=== PATIENT | male | born 1945 | race African-American/Black ===

== ENCOUNTER 2019-02-21 22:40 | Inpatient (IN) | payer MEDICARE, MEDICAID ==
[~2019-02-21] VITALS: Ht 172.7 cm; Wt 68.5 kg
[2019-02-21] MEDS ORDERED: ONDANSETRON HCL 4MG/2ML INJ IV STA (22:46)
[2019-02-21] MEDS ORDERED: IPRATROPIUM BROMIDE (0.02%) 0.5MG/2.5ML NEB HHN STA (22:46)
[2019-02-21] MEDS ORDERED: ALBUTEROL (0.083%) 2.5MG/3ML NEB HHN STA (22:46)
[2019-02-21] MEDS ORDERED: METHYLPREDNISOLONE SOD SUCC 125 MG/2 ML VIAL IV STA (22:46)
[2019-02-21] MEDS ORDERED: ASPIRIN 81MG TABLET PO ONE (23:00)
[2019-02-21 23:03] LABS: BG BASE EXCESS 2.8 mmol/L (-2.0-2.0); BG BILEVEL POS AIRWAY PRESSURE 15/5; BG CARBOXYHEMOGLOBIN 0.6 % (0.5-1.5); BG DEOXYHEMOGLOBIN 0.4 % (0.0-5.0); BG FRACTION INSPIRED OXYGEN 100; BG HCO3 ACT 30.9 mmol/L (22.0-26.0); BG METHEMOGLOBIN 0.3 % (0.0-1.5); BG OXYGEN SATURATION 99.6 % (92.0-98.5); BG OXYHEMOGLOBIN 98.7 % (94.0-97.0); BG PCO2 62.5 mmHg (35.0-45.0); BG PH 7.312 (7.350-7.450); BG PO2 527.5 mmHg (75.0-100.0); BG SAMPLE SITE LEFT RADIAL; BG TOTAL HEMOGLOBIN 15.3 g/dL (12.0-18.0); BG VENT MODE MASK - BIPAP
[2019-02-21 23:21] LABS: BASOPHILS % 0.6 % (0.0-2.0); EOSINOPHILS % 0.2 % (0.0-5.0); HEMATOCRIT. 44.7 % (42.0-52.0); HEMOGLOBIN. 15.5 g/dL (14.0-18.0); LYMPHOCYTES % 19.2 % (20.0-50.0); MEAN CORPUSCULAR HEMOGLOBIN 29.4 pg (28.0-32.0); MEAN CORPUSCULAR VOLUME 84.9 fL (80.0-94.0); MEAN PLATELET VOLUME 6.8 fl (7.4-10.4); MONOCYTES % 4.2 % (2.0-8.0); NEUTROPHILS % 75.8 % (40.0-76.0); PLATELET 314 x1000/uL (130-400); RED BLOOD CELL COUNT 5.26 mill/uL (4.7-6.1); RED CELL DISTRIBUTION WIDTH 13.6 % (11.6-14.6)
[2019-02-21 23:27] LABS: CHLORIDE 84 mEq/L (98-107)
[2019-02-22] VITALS (44 sets, daily range): BP systolic 102–138; BP diastolic 47–90
[2019-02-22] MEDS ORDERED: SODIUM CHLORIDE 0.9% 1,000 ML IV ONE ×2 (01:45→05:15)
[2019-02-22] MEDS ORDERED: POTASSIUM CHLORIDE INJ 40 MEQ in DEXT 5% WATER 250 ML IV SCH (02:00)
[2019-02-22] MEDS: POTASSIUM CHLORIDE 20MEQ TABLET SR PO SCH ×3 (02:02→02:35)
[2019-02-22] MEDS ORDERED: SUCCINYLCHOLINE CHLORIDE 200MG/10ML IV ONE ×2 (03:00→05:00)
[2019-02-22] MEDS ORDERED: ETOMIDATE 2MG/ML 10ML VIAL IV ONE ×2 (03:00→05:00)
[2019-02-22] MEDS ORDERED: MIDAZOLAM HCL 50 MG in DEXTROSE 5% WATER 40 ML IV ONE ×2 (03:15→04:00)
[2019-02-22] MEDS ORDERED: FENTANYL CITRATE/PF 500 MCG in SODIUM CHLORIDE 0.9% 40 ML IV PRN ×2 (03:15→04:30)
[2019-02-22] MEDS ORDERED: LORAZEPAM 2MG/ML CPJ ONE ×2 (03:59→04:58)
[2019-02-22] MEDS ORDERED: MORPHINE SULFATE 10 MG/ML CPJ ONE (05:07)
[2019-02-22 06:19] LABS: BG BASE EXCESS -0.7 mmol/L (-2.0-2.0); BG CARBOXYHEMOGLOBIN 0.6 % (0.5-1.5); BG DEOXYHEMOGLOBIN 0.6 % (0.0-5.0); BG FRACTION INSPIRED OXYGEN 100; BG HCO3 ACT 25.4 mmol/L (22.0-26.0); BG METHEMOGLOBIN 0.4 % (0.0-1.5); BG OXYGEN SATURATION 99.4 % (92.0-98.5); BG OXYHEMOGLOBIN 98.4 % (94.0-97.0); BG PCO2 47.7 mmHg (35.0-45.0); BG PH 7.345 (7.350-7.450); BG PO2 436.3 mmHg (75.0-100.0); BG SAMPLE SITE RIGHT RADIAL; BG TIDAL VOLUME(mL) 400 mL; BG TOTAL HEMOGLOBIN 13.3 g/dL (12.0-18.0); BG VENT MODE VENT - A/C; BG VENT RATE 16 set
[2019-02-22] MEDS ORDERED: LORAZEPAM 2MG/ML CPJ IV ONE (06:40)
[2019-02-22] MEDS ORDERED: MORPHINE SULFATE 4 MG/ML CPJ (NOT FOR IM USE) IV ONE (06:40)
[2019-02-22] MEDS ORDERED: IPRATROPIUM/ALBUTEROL 0.5-3(2.5)MG/3ML NEB HHN PRN (09:15)
[2019-02-22] MEDS ORDERED: ACETAMINOPHEN 325MG TABLET NG PRN (09:15)
[2019-02-22] MEDS ORDERED: ONDANSETRON HCL 4MG/2ML INJ IV PRN (09:15)
[2019-02-22] MEDS ORDERED: PIPERACILLIN/TAZ 3.375G PREMIX 50 ML IV SCH (09:15)
[2019-02-22] MEDS ORDERED: MAGNESIUM 2 G PREMIX 50 ML IV ONE (09:15)
[2019-02-22 10:49] LABS: BG BASE EXCESS 3.6 mmol/L (-2.0-2.0); BG CARBOXYHEMOGLOBIN 0.2 % (0.5-1.5); BG DEOXYHEMOGLOBIN 1.5 % (0.0-5.0); BG FRACTION INSPIRED OXYGEN 50; BG HCO3 ACT 29.7 mmol/L (22.0-26.0); BG METHEMOGLOBIN 0.4 % (0.0-1.5); BG OXYGEN SATURATION 98.5 % (92.0-98.5); BG OXYHEMOGLOBIN 97.9 % (94.0-97.0); BG PCO2 50.6 mmHg (35.0-45.0); BG PH 7.386 (7.350-7.450); BG PO2 148.8 mmHg (75.0-100.0); BG SAMPLE SITE RIGHT RADIAL; BG TIDAL VOLUME(mL) 450 mL; BG VENT MODE VENT - A/C; BG VENT RATE 16 set
[2019-02-22] MEDS ORDERED: SODIUM CHLORIDE 3% 500 ML IV NR (11:00)
[2019-02-22] MEDS ORDERED: POTASSIUM CHLORIDE INJ 40 MEQ in SODIUM CHLORIDE 0.9% 250 ML IV NR (11:00)
[2019-02-22] MEDS: PIPERACILLIN/TAZOBACTAM 3.375 G in DEXT 5% WATER 100 ML IV SCH ×2 (11:16→17:29)
[2019-02-22] MEDS: ENOXAPARIN 40MG/0.4ML SYR SUBCUT SCH (11:16)
[2019-02-22] MEDS ORDERED: VANCOMYCIN 1 G PREMIX 200 ML IV NR (11:30)
[2019-02-22] MEDS: MIDAZOLAM HCL 50 MG in DEXTROSE 5% WATER 40 ML IV PRN (12:51)
[2019-02-22] MEDS: IPRATROPIUM/ALBUTEROL 0.5-3(2.5)MG/3ML NEB HHN SCH ×3 (13:00→20:11)
[2019-02-22 13:19] LABS: BASOPHILS % 0.2 % (0.0-2.0); CHLORIDE 93 mEq/L (98-107); HEMATOCRIT. 41.5 % (42.0-52.0); HEMOGLOBIN. 14.3 g/dL (14.0-18.0); LYMPHOCYTES % 9.1 % (20.0-50.0); MEAN CORPUSCULAR HEMOGLOBIN 29.1 pg (28.0-32.0); MEAN CORPUSCULAR VOLUME 84.4 fL (80.0-94.0); MEAN PLATELET VOLUME 6.8 fl (7.4-10.4); MONOCYTES % 8.4 % (2.0-8.0); NEUTROPHILS % 82.3 % (40.0-76.0); PLATELET 271 x1000/uL (130-400); RED BLOOD CELL COUNT 4.92 mill/uL (4.7-6.1); RED CELL DISTRIBUTION WIDTH 13.6 % (11.6-14.6)
[2019-02-22] MEDS: MONTELUKAST SODIUM 10MG TABLET NG SCH (17:29)
[2019-02-22] MEDS: POTASSIUM CHLORIDE 20MEQ/PACKET NG SCH (17:29)
[2019-02-22] MEDS: FAMOTIDINE 20MG/2ML VIAL IV SCH (20:50)
[2019-02-22 21:21] LABS: CREATINE KINASE MB FRACTION 14.6 ng/mL (0.5-3.6)
[2019-02-22 21:22] LABS: T4 FREE 1.11 ng/dL (0.76-1.46)
[2019-02-22] MEDS ORDERED: VANCOMYCIN 750 MG PREMIX 150 ML IV SCH (22:00)
[2019-02-23] VITALS (90 sets, daily range): BP systolic 75–178; BP diastolic 33–127
[2019-02-23] MEDS: IPRATROPIUM/ALBUTEROL 0.5-3(2.5)MG/3ML NEB HHN SCH ×6 (00:25→19:55)
[2019-02-23 01:07] LABS: CREATINE KINASE MB FRACTION 10.6 ng/mL (0.5-3.6)
[2019-02-23] MEDS: PIPERACILLIN/TAZOBACTAM 3.375 G in DEXT 5% WATER 100 ML IV SCH ×3 (02:04→17:26)
[2019-02-23] MEDS: MIDAZOLAM HCL 50 MG in DEXTROSE 5% WATER 40 ML IV PRN ×3 (02:14→21:46)
[2019-02-23 05:38] LABS: BASOPHILS % 0.2 % (0.0-2.0); HEMATOCRIT. 37.6 % (42.0-52.0); MEAN CORPUSCULAR VOLUME 83.7 fL (80.0-94.0); MONOCYTES % 8.3 % (2.0-8.0); NEUTROPHILS % 83.5 % (40.0-76.0); PLATELET 263 x1000/uL (130-400); RED BLOOD CELL COUNT 4.49 mill/uL (4.7-6.1); RED CELL DISTRIBUTION WIDTH 13.8 % (11.6-14.6)
[2019-02-23 06:03] LABS: CHLORIDE 105 mEq/L (98-107)
[2019-02-23 06:16] LABS: PHOSPHORUS 1.1 mg/dL (2.5-4.9)
[2019-02-23] MEDS: POTASSIUM CHLORIDE 20MEQ/PACKET NG SCH ×2 (06:51→17:26)
[2019-02-23] MEDS ORDERED: LEVOTHYROXINE SODIUM 25MCG TABLET NG SCH (07:15)
[2019-02-23] MEDS ORDERED: DEXT 5%/0.45% NACL 1000ML 1,000 ML IV SCH (07:15)
[2019-02-23] MEDS ORDERED: POTASSIUM PHOS M BASIC D BASIC IV SCH (08:00)
[2019-02-23] MEDS ORDERED: DEXT IV SCH (08:00)
[2019-02-23] MEDS ORDERED: NACL IV SCH (08:00)
[2019-02-23] MEDS: FAMOTIDINE 20MG/2ML VIAL IV SCH ×2 (09:06→20:48)
[2019-02-23] MEDS: AMLODIPINE 2.5MG TABLET NG SCH (09:06)
[2019-02-23] MEDS: POTASSIUM-SODIUM PHOSPHATE POWDER PACKET NG SCH ×2 (09:06→17:18)
[2019-02-23] MEDS: MORPHINE SULFATE 2 MG/ML CPJ (NOT FOR IM USE) IV PRN ×2 (09:07→17:13)
[2019-02-23] MEDS: ENOXAPARIN 40MG/0.4ML SYR SUBCUT SCH (09:07)
[2019-02-23] MEDS: DEXT 5%/0.9% NACL KCL 20MEQ/L 1,000 ML IV SCH (10:24)
[2019-02-23] MEDS ORDERED: VANCOMYCIN 1250MG in DEXTROSE 5% WATER 250ML IV SCH (11:00)
[2019-02-23 12:23] LABS: BG BASE EXCESS 4.6 mmol/L (-2.0-2.0); BG CARBOXYHEMOGLOBIN 0.5 % (0.5-1.5); BG DEOXYHEMOGLOBIN 0.8 % (0.0-5.0); BG FRACTION INSPIRED OXYGEN 50; BG HCO3 ACT 29.3 mmol/L (22.0-26.0); BG METHEMOGLOBIN 0.4 % (0.0-1.5); BG OXYGEN SATURATION 99.2 % (92.0-98.5); BG OXYHEMOGLOBIN 98.3 % (94.0-97.0); BG PCO2 43.8 mmHg (35.0-45.0); BG PH 7.443 (7.350-7.450); BG PO2 196.2 mmHg (75.0-100.0); BG SAMPLE SITE RIGHT RADIAL; BG TIDAL VOLUME(mL) 450 mL; BG TOTAL HEMOGLOBIN 14.3 g/dL (12.0-18.0); BG VENT MODE VENT - A/C; BG VENT RATE 16 set
[2019-02-23 14:17] LABS: CLARITY URINE CLEAR (CLEAR); COLOR URINE RED (YELLOW); KETONES URINE NEGATIVE (NEGATIVE); LEUKOCYTE ESTERASE URINE NEGATIVE (NEGATIVE); NITRITE URINE NEGATIVE (NEGATIVE); OCCULT BLOOD URINE 3+ (NEGATIVE); PROTEIN URINE NEGATIVE (NEGATIVE); SPECIFIC GRAVITY URINE 1.009 (1.005-1.030); UROBILINOGEN URINE 0.2 E.U./dL (0.2-1.0)
[2019-02-23 15:19] LABS: METHADONE URINE SCREEN NEGATIVE (NEGATIVE)
[2019-02-23 15:20] LABS: *AMPHETAMINES SCREEN URINE NEGATIVE (NEGATIVE); *BARBITURATES SCREEN URINE NEGATIVE (NEGATIVE); *BENZODIAZEPINES SCREEN URINE PRESUMTIVE POSITIVE (NEGATIVE); *COCAINE SCREEN URINE NEGATIVE (NEGATIVE); CANNABINOID URINE SCREEN NEGATIVE (NEGATIVE); OPIATES URINE SCREEN PRESUMTIVE POSITIVE (NEGATIVE); PHENCYCLIDINE URINE SCREEN NEGATIVE (NEGATIVE)
[2019-02-23] MEDS: MONTELUKAST SODIUM 10MG TABLET NG SCH (17:18)
[2019-02-24] VITALS (97 sets, daily range): BP systolic 96–190; BP diastolic 30–101
[2019-02-24] MEDS: IPRATROPIUM/ALBUTEROL 0.5-3(2.5)MG/3ML NEB HHN SCH ×6 (00:05→20:48)
[2019-02-24] MEDS: MORPHINE SULFATE 2 MG/ML CPJ (NOT FOR IM USE) IV PRN ×3 (01:33→13:06)
[2019-02-24] MEDS: PIPERACILLIN/TAZOBACTAM 3.375 G in DEXT 5% WATER 100 ML IV SCH ×3 (02:27→18:17)
[2019-02-24] MEDS: DEXT 5%/0.9% NACL KCL 20MEQ/L 1,000 ML IV SCH (02:28)
[2019-02-24] MEDS: MIDAZOLAM HCL 50 MG in DEXTROSE 5% WATER 40 ML IV PRN ×3 (04:17→18:19)
[2019-02-24 05:52] LABS: BASOPHILS % 0.6 % (0.0-2.0); EOSINOPHILS % 0.3 % (0.0-5.0); HEMATOCRIT. 37.4 % (42.0-52.0); HEMOGLOBIN. 12.7 g/dL (14.0-18.0); LYMPHOCYTES % 9.8 % (20.0-50.0); MEAN CORPUSCULAR HEMOGLOBIN 28.9 pg (28.0-32.0); MEAN CORPUSCULAR VOLUME 85.1 fL (80.0-94.0); MEAN PLATELET VOLUME 6.7 fl (7.4-10.4); MONOCYTES % 8.1 % (2.0-8.0); NEUTROPHILS % 81.2 % (40.0-76.0); PLATELET 247 x1000/uL (130-400); RED BLOOD CELL COUNT 4.39 mill/uL (4.7-6.1); RED CELL DISTRIBUTION WIDTH 13.9 % (11.6-14.6)
[2019-02-24] MEDS: POTASSIUM CHLORIDE 20MEQ/PACKET NG SCH ×2 (06:19→18:17)
[2019-02-24 06:21] LABS: CHLORIDE 107 mEq/L (98-107)
[2019-02-24 06:32] LABS: PHOSPHORUS 1.1 mg/dL (2.5-4.9)
[2019-02-24] MEDS: LEVOTHYROXINE SODIUM 25MCG TABLET NG SCH (06:34)
[2019-02-24] MEDS ORDERED: SODIUM CHL 0.45% + KCL 20MEQ/L 1,000 ML IV SCH (09:00)
[2019-02-24] MEDS: AMLODIPINE 2.5MG TABLET NG SCH (09:21)
[2019-02-24] MEDS: FAMOTIDINE 20MG/2ML VIAL IV SCH ×2 (09:21→20:40)
[2019-02-24] MEDS: POTASSIUM-SODIUM PHOSPHATE POWDER PACKET NG SCH ×2 (09:21→18:17)
[2019-02-24] MEDS: ENOXAPARIN 40MG/0.4ML SYR SUBCUT SCH (09:21)
[2019-02-24 09:54] LABS: BG BASE EXCESS 2.4 mmol/L (-2.0-2.0); BG CARBOXYHEMOGLOBIN 0.6 % (0.5-1.5); BG FRACTION INSPIRED OXYGEN 40; BG HCO3 ACT 27.4 mmol/L (22.0-26.0); BG METHEMOGLOBIN 0.3 % (0.0-1.5); BG OXYHEMOGLOBIN 98.1 % (94.0-97.0); BG PCO2 43.7 mmHg (35.0-45.0); BG PH 7.415 (7.350-7.450); BG SAMPLE SITE RIGHT RADIAL; BG TIDAL VOLUME(mL) 450 mL; BG TOTAL HEMOGLOBIN 13.3 g/dL (12.0-18.0); BG VENT MODE VENT - A/C; BG VENT RATE 16 set
[2019-02-24] MEDS: VANCOMYCIN 1 G PREMIX 200 ML IV SCH (11:32)
[2019-02-24] MEDS ORDERED: POTASSIUM PHOS,M-BASIC-D-BASIC 20 MMOL in DEXT 5% WATER 243.3333 ML IV NR (12:00)
[2019-02-24] MEDS: MONTELUKAST SODIUM 10MG TABLET NG SCH (18:16)
[2019-02-25] VITALS (107 sets, daily range): BP systolic 76–190; BP diastolic 45–155
[2019-02-25] MEDS: MIDAZOLAM HCL 50 MG in DEXTROSE 5% WATER 40 ML IV PRN ×2 (00:12→06:43)
[2019-02-25] MEDS: IPRATROPIUM/ALBUTEROL 0.5-3(2.5)MG/3ML NEB HHN SCH ×6 (00:34→20:40)
[2019-02-25] MEDS: PIPERACILLIN/TAZOBACTAM 3.375 G in DEXT 5% WATER 100 ML IV SCH ×3 (01:34→17:55)
[2019-02-25] MEDS: VANCOMYCIN 1 G PREMIX 200 ML IV SCH ×2 (02:45→19:19)
[2019-02-25] MEDS: LEVOTHYROXINE SODIUM 25MCG TABLET NG SCH (05:44)
[2019-02-25] MEDS: POTASSIUM CHLORIDE 20MEQ/PACKET NG SCH ×2 (05:45→17:55)
[2019-02-25 06:07] LABS: BASOPHILS % 0.5 % (0.0-2.0); EOSINOPHILS % 0.9 % (0.0-5.0); HEMOGLOBIN. 13.4 g/dL (14.0-18.0); LYMPHOCYTES % 12.7 % (20.0-50.0); MEAN CORPUSCULAR HEMOGLOBIN 28.8 pg (28.0-32.0); MEAN CORPUSCULAR VOLUME 86.2 fL (80.0-94.0); MEAN PLATELET VOLUME 7.1 fl (7.4-10.4); NEUTROPHILS % 77.9 % (40.0-76.0); PLATELET 255 x1000/uL (130-400); RED BLOOD CELL COUNT 4.64 mill/uL (4.7-6.1); RED CELL DISTRIBUTION WIDTH 13.8 % (11.6-14.6)
[2019-02-25 06:29] LABS: CHLORIDE 103 mEq/L (98-107)
[2019-02-25 06:36] LABS: PHOSPHORUS 3.5 mg/dL (2.5-4.9)
[2019-02-25 08:16] LABS: BG BASE EXCESS 1.5 mmol/L (-2.0-2.0); BG CARBOXYHEMOGLOBIN 0.3 % (0.5-1.5); BG DEOXYHEMOGLOBIN 1.5 % (0.0-5.0); BG FRACTION INSPIRED OXYGEN 40; BG HCO3 ACT 26.4 mmol/L (22.0-26.0); BG METHEMOGLOBIN 0.1 % (0.0-1.5); BG OXYGEN SATURATION 98.5 % (92.0-98.5); BG OXYHEMOGLOBIN 98.1 % (94.0-97.0); BG PCO2 42.6 mmHg (35.0-45.0); BG PO2 131.4 mmHg (75.0-100.0); BG PRESSURE SUPPORT 12; BG SAMPLE SITE RIGHT RADIAL; BG TIDAL VOLUME(mL) 500 mL; BG VENT MODE VENT - SIMV; BG VENT RATE 8 set
[2019-02-25] MEDS: ENOXAPARIN 40MG/0.4ML SYR SUBCUT SCH (09:46)
[2019-02-25] MEDS: FAMOTIDINE 20MG/2ML VIAL IV SCH ×2 (09:46→21:15)
[2019-02-25] MEDS: AMLODIPINE 2.5MG TABLET NG SCH (09:46)
[2019-02-25] MEDS: POTASSIUM-SODIUM PHOSPHATE POWDER PACKET NG SCH ×2 (09:46→17:55)
[2019-02-25] MEDS: MORPHINE SULFATE 2 MG/ML CPJ (NOT FOR IM USE) IV PRN (10:07)
[2019-02-25] MEDS: QUETIAPINE FUMARATE 25MG TABLET PO SCH (13:35)
[2019-02-25] MEDS: PROPOFOL 10MG/ML 100ML 100 ML IV PRN ×2 (13:37→22:18)
[2019-02-25] MEDS: MONTELUKAST SODIUM 10MG TABLET NG SCH (17:55)
[2019-02-26] VITALS (96 sets, daily range): BP systolic 72–160; BP diastolic 40–85
[2019-02-26] MEDS: IPRATROPIUM/ALBUTEROL 0.5-3(2.5)MG/3ML NEB HHN SCH ×7 (00:38→23:57)
[2019-02-26] MEDS: PIPERACILLIN/TAZOBACTAM 3.375 G in DEXT 5% WATER 100 ML IV SCH ×3 (01:38→17:28)
[2019-02-26 06:28] LABS: BASOPHILS % 0.6 % (0.0-2.0); EOSINOPHILS % 2.1 % (0.0-5.0); HEMATOCRIT. 35.4 % (42.0-52.0); HEMOGLOBIN. 12.5 g/dL (14.0-18.0); MEAN CORPUSCULAR VOLUME 84.9 fL (80.0-94.0); MEAN PLATELET VOLUME 7.2 fl (7.4-10.4); MONOCYTES % 7.7 % (2.0-8.0); NEUTROPHILS % 79.6 % (40.0-76.0); PLATELET 282 x1000/uL (130-400); RED BLOOD CELL COUNT 4.17 mill/uL (4.7-6.1); RED CELL DISTRIBUTION WIDTH 13.9 % (11.6-14.6)
[2019-02-26] MEDS: POTASSIUM CHLORIDE 20MEQ/PACKET NG SCH (06:34)
[2019-02-26] MEDS: LEVOTHYROXINE SODIUM 25MCG TABLET NG SCH (06:34)
[2019-02-26 06:39] LABS: PHOSPHORUS 3.2 mg/dL (2.5-4.9)
[2019-02-26] MEDS: ENOXAPARIN 40MG/0.4ML SYR SUBCUT SCH (07:56)
[2019-02-26] MEDS: QUETIAPINE FUMARATE 25MG TABLET PO SCH (07:57)
[2019-02-26] MEDS: FAMOTIDINE 20MG/2ML VIAL IV SCH (07:57)
[2019-02-26] MEDS: AMLODIPINE 2.5MG TABLET NG SCH (07:57)
[2019-02-26] MEDS: PROPOFOL 10MG/ML 100ML 100 ML IV PRN ×2 (07:59→21:59)
[2019-02-26 08:38] LABS: BG BASE EXCESS -5.3 mmol/L (-2.0-2.0); BG CARBOXYHEMOGLOBIN 0.3 % (0.5-1.5); BG DEOXYHEMOGLOBIN 1.5 % (0.0-5.0); BG FRACTION INSPIRED OXYGEN 40; BG METHEMOGLOBIN 0.1 % (0.0-1.5); BG OXYGEN SATURATION 98.5 % (92.0-98.5); BG OXYHEMOGLOBIN 98.1 % (94.0-97.0); BG PCO2 28.8 mmHg (35.0-45.0); BG PH 7.414 (7.350-7.450); BG PO2 139.7 mmHg (75.0-100.0); BG PRESSURE SUPPORT 12; BG SAMPLE SITE RIGHT RADIAL; BG TIDAL VOLUME(mL) 500 mL; BG TOTAL HEMOGLOBIN 12.6 g/dL (12.0-18.0); BG VENT MODE VENT - SIMV; BG VENT RATE 8 set
[2019-02-26] MEDS: VANCOMYCIN 1 G PREMIX 200 ML IV SCH (15:27)
[2019-02-26] MEDS: MONTELUKAST SODIUM 10MG TABLET NG SCH (17:28)
[2019-02-27] VITALS (97 sets, daily range): BP systolic 82–181; BP diastolic 36–101
[2019-02-27] MEDS: PIPERACILLIN/TAZOBACTAM 3.375 G in DEXT 5% WATER 100 ML IV SCH ×3 (02:04→17:18)
[2019-02-27] MEDS: PROPOFOL 10MG/ML 100ML 100 ML IV PRN ×4 (03:05→21:59)
[2019-02-27] MEDS: MORPHINE SULFATE 2 MG/ML CPJ (NOT FOR IM USE) IV PRN ×2 (03:05→12:30)
[2019-02-27] MEDS: IPRATROPIUM/ALBUTEROL 0.5-3(2.5)MG/3ML NEB HHN SCH ×5 (04:20→20:23)
[2019-02-27] MEDS: LEVOTHYROXINE SODIUM 25MCG TABLET NG SCH (05:37)
[2019-02-27 05:54] LABS: BASOPHILS % 0.7 % (0.0-2.0); EOSINOPHILS % 3.6 % (0.0-5.0); HEMATOCRIT. 34.8 % (42.0-52.0); HEMOGLOBIN. 11.9 g/dL (14.0-18.0); LYMPHOCYTES % 12.6 % (20.0-50.0); MEAN CORPUSCULAR HEMOGLOBIN 29.4 pg (28.0-32.0); MONOCYTES % 9.7 % (2.0-8.0); NEUTROPHILS % 73.4 % (40.0-76.0); PLATELET 292 x1000/uL (130-400); RED BLOOD CELL COUNT 4.05 mill/uL (4.7-6.1); RED CELL DISTRIBUTION WIDTH 13.9 % (11.6-14.6)
[2019-02-27 06:12] LABS: CHLORIDE 105 mEq/L (98-107)
[2019-02-27 07:47] LABS: BG BASE EXCESS 2.4 mmol/L (-2.0-2.0); BG DEOXYHEMOGLOBIN 1.9 % (0.0-5.0); BG FRACTION INSPIRED OXYGEN 30; BG HCO3 ACT 27.1 mmol/L (22.0-26.0); BG METHEMOGLOBIN 0.1 % (0.0-1.5); BG OXYGEN SATURATION 98.1 % (92.0-98.5); BG PCO2 42.8 mmHg (35.0-45.0); BG PO2 101.7 mmHg (75.0-100.0); BG PRESSURE SUPPORT 12; BG SAMPLE SITE RIGHT BRACHIAL; BG TIDAL VOLUME(mL) 500 mL; BG VENT MODE VENT - SIMV; BG VENT RATE 8 set
[2019-02-27] MEDS: VANCOMYCIN 1 G PREMIX 200 ML IV SCH (08:52)
[2019-02-27] MEDS: AMLODIPINE 2.5MG TABLET NG SCH (08:53)
[2019-02-27] MEDS: FAMOTIDINE 20MG/2ML VIAL IV SCH (08:59)
[2019-02-27] MEDS: LORAZEPAM 2MG/ML CPJ IV PRN (12:09)
[2019-02-27] MEDS: BUDESONIDE 0.5MG/2ML NEB HHN SCH ×2 (12:32→20:23)
[2019-02-27] MEDS ORDERED: LORAZEPAM 2MG/ML CPJ IV NR (12:45)
[2019-02-27 13:35] LABS: BG BASE EXCESS 2.7 mmol/L (-2.0-2.0); BG CARBOXYHEMOGLOBIN 0.3 % (0.5-1.5); BG DEOXYHEMOGLOBIN 4.2 % (0.0-5.0); BG FRACTION INSPIRED OXYGEN 30; BG HCO3 ACT 27.5 mmol/L (22.0-26.0); BG METHEMOGLOBIN 0.2 % (0.0-1.5); BG OXYGEN SATURATION 95.8 % (92.0-98.5); BG OXYHEMOGLOBIN 95.3 % (94.0-97.0); BG PCO2 43.1 mmHg (35.0-45.0); BG PH 7.423 (7.350-7.450); BG PO2 85.3 mmHg (75.0-100.0); BG PRESSURE SUPPORT 8; BG SAMPLE SITE RIGHT RADIAL; BG TOTAL HEMOGLOBIN 12.9 g/dL (12.0-18.0); BG VENT MODE VENT - CPAP
[2019-02-27] MEDS: MONTELUKAST SODIUM 10MG TABLET NG SCH (17:18)
[2019-02-28] VITALS (89 sets, daily range): BP systolic 78–171; BP diastolic 30–94
[2019-02-28] MEDS: IPRATROPIUM/ALBUTEROL 0.5-3(2.5)MG/3ML NEB HHN SCH ×6 (00:18→20:05)
[2019-02-28] MEDS: PIPERACILLIN/TAZOBACTAM 3.375 G in DEXT 5% WATER 100 ML IV SCH ×3 (01:46→17:56)
[2019-02-28] MEDS: PROPOFOL 10MG/ML 100ML 100 ML IV PRN ×5 (03:42→21:59)
[2019-02-28 05:19] LABS: BASOPHILS % 0.6 % (0.0-2.0); EOSINOPHILS % 3.4 % (0.0-5.0); HEMATOCRIT. 34.9 % (42.0-52.0); HEMOGLOBIN. 11.9 g/dL (14.0-18.0); LYMPHOCYTES % 10.8 % (20.0-50.0); MEAN CORPUSCULAR HEMOGLOBIN 29.3 pg (28.0-32.0); MEAN PLATELET VOLUME 6.8 fl (7.4-10.4); MONOCYTES % 7.9 % (2.0-8.0); NEUTROPHILS % 77.3 % (40.0-76.0); PLATELET 286 x1000/uL (130-400); RED BLOOD CELL COUNT 4.06 mill/uL (4.7-6.1); RED CELL DISTRIBUTION WIDTH 13.9 % (11.6-14.6)
[2019-02-28 05:50] LABS: CHLORIDE 103 mEq/L (98-107)
[2019-02-28] MEDS: LEVOTHYROXINE SODIUM 25MCG TABLET NG SCH (05:54)
[2019-02-28] MEDS: BUDESONIDE 0.5MG/2ML NEB HHN SCH ×2 (08:29→20:05)
[2019-02-28 08:56] LABS: BG CARBOXYHEMOGLOBIN 0.2 % (0.5-1.5); BG DEOXYHEMOGLOBIN 3.6 % (0.0-5.0); BG FRACTION INSPIRED OXYGEN 30; BG HCO3 ACT 31.2 mmol/L (22.0-26.0); BG METHEMOGLOBIN 0.3 % (0.0-1.5); BG OXYGEN SATURATION 96.4 % (92.0-98.5); BG OXYHEMOGLOBIN 95.9 % (94.0-97.0); BG PCO2 47.5 mmHg (35.0-45.0); BG PH 7.435 (7.350-7.450); BG PO2 85.7 mmHg (75.0-100.0); BG PRESSURE SUPPORT 10; BG SAMPLE SITE RIGHT BRACHIAL; BG TIDAL VOLUME(mL) 500 mL; BG TOTAL HEMOGLOBIN 13.1 g/dL (12.0-18.0); BG VENT MODE VENT - SIMV; BG VENT RATE 6 set
[2019-02-28] MEDS: AMLODIPINE 2.5MG TABLET NG SCH (09:00)
[2019-02-28] MEDS: FAMOTIDINE 20MG/2ML VIAL IV SCH (09:40)
[2019-02-28] MEDS: LORAZEPAM 2MG/ML CPJ IV PRN (09:40)
[2019-02-28] MEDS ORDERED: SODIUM CHLORIDE 0.9% 1,000 ML IV SCH (09:45)
[2019-02-28] MEDS: MONTELUKAST SODIUM 10MG TABLET NG SCH (17:56)
[2019-02-28] MEDS ORDERED: HALOPERIDOL 0.5MG TABLET PO SCH (22:00)
== END 2019-02-28 22:10 | disposition short-term general hospital (02) | DRG 4 ==
LOC: ER 22:50 → MICUNO 02-22 01:45 → EDBEDREQDT 02-22 01:50 → EDBEDREQSVC 02-22 01:50 → EDBEDREQ 02-22 01:50 → EDBEDREQTM 02-22 01:50 → EDBEDREQSVC 02-22 05:48 → EDBEDREQTM 02-22 05:50 → ENRESERV 02-22 08:37
PROVIDERS: ADMIT Internal Medicine Geriatric Medicine; ATTEND Internal Medicine Geriatric Medicine
PROC: 5A1955Z Respiratory Ventilation, Greater than 96 Consecutive Hours (ICD-10-PCS; principal; 2019-02-22)
PROC: 0B110F4 Bypass Trachea to Cutaneous with Tracheostomy Device, Open Approach (ICD-10-PCS; 2019-02-22)
PROC: 5A09357 Assistance with Respiratory Ventilation, Less than 24 Consecutive Hours, Continuous Positive Airway Pressure (ICD-10-PCS; 2019-02-22)
DX: J96.02 Acute respiratory failure with hypercapnia (principal); G93.41 Metabolic encephalopathy; J18.9 Pneumonia, unspecified organism; N17.0 Acute kidney failure with tubular necrosis; J44.1 Chronic obstructive pulmonary disease with (acute) exacerbation; E22.2 Syndrome of inappropriate secretion of antidiuretic hormone; E44.0 Moderate protein-calorie malnutrition; J44.0 Chronic obstructive pulmonary disease with (acute) lower respiratory infection; E83.39 Other disorders of phosphorus metabolism; E87.6 Hypokalemia; D64.9 Anemia, unspecified; E03.9 Hypothyroidism, unspecified; E11.65 Type 2 diabetes mellitus with hyperglycemia; E87.5 Hyperkalemia; K80.20 Calculus of gallbladder without cholecystitis without obstruction; J39.8 Other specified diseases of upper respiratory tract; R31.29 Other microscopic hematuria; Z85.21 Personal history of malignant neoplasm of larynx; Z92.3 Personal history of irradiation; Z93.0 Tracheostomy status; Z68.23 Body mass index [BMI] 23.0-23.9, adult
CPT/HCPCS: 36415; 36600; 70490; 71045; 71250; 76770; 80048; 80053; 80202; 80305; 81003; 82375; 82553; 82805; 83735; 83880; 84100; 84153; 84439; 84443; 84478; 84484; 85025; 87070; 87077; 87186; 87804; 93005; 93306; 93970; 94002; 94003; 94640; 94644; 94660; 99285; J0330; J1650; J2060; J2250; J2270; J2405; J2543; J2704; J2930; J3010; J3370; J3480; J3490; J7030; J7050; J7060; J7611; J7620; J7626; G0103

== ENCOUNTER 2019-03-04 20:00 | Inpatient (IN) | payer MEDICARE, MEDICAID ==
[2019-03-04] VITALS (13 sets, daily range): BP systolic 105–166; BP diastolic 47–92
[~2019-03-04] VITALS: Ht 170.2 cm; Wt 75.3 kg
[2019-03-04] MEDS: LACTATED RINGERS 1,000 ML IV SCH (20:30)
[2019-03-04] MEDS ORDERED: DEXTROSE 50% WATER 50ML SYRINGE IV PRN (22:45)
[2019-03-04] MEDS: PROPOFOL 10MG/ML 100ML 100 ML IV PRN (23:05)
[2019-03-04] MEDS: BLOOD SUGAR DIAGNOSTIC STRIP TEST SCH (23:12)
[2019-03-04] MEDS: INSULIN LISPRO 100 UNITS/ML SUBCUT SCH (23:13)
[2019-03-04] MEDS: FENTANYL CITRATE/PF 500 MCG in SODIUM CHLORIDE 0.9% 40 ML IV PRN (23:19)
[2019-03-05] VITALS (84 sets, daily range): BP systolic 75–168; BP diastolic 41–117
[2019-03-05 01:24] LABS: HEMATOCRIT. 34.3 % (42.0-52.0); HEMOGLOBIN. 11.7 g/dL (14.0-18.0); MEAN CORPUSCULAR HEMOGLOBIN 28.8 pg (28.0-32.0); MEAN CORPUSCULAR VOLUME 84.7 fL (80.0-94.0); MEAN PLATELET VOLUME 6.8 fl (7.4-10.4); PLATELET 387 x1000/uL (130-400); RED BLOOD CELL COUNT 4.05 mill/uL (4.7-6.1); RED CELL DISTRIBUTION WIDTH 13.6 % (11.6-14.6)
[2019-03-05 01:33] LABS: CHLORIDE 103 mEq/L (98-107)
[2019-03-05 02:08] LABS: PLATELET ESTIMATE NORMAL
[2019-03-05] MEDS: PROPOFOL 10MG/ML 100ML 100 ML IV PRN (02:53)
[2019-03-05 05:40] LABS: BASOPHILS % 0.4 % (0.0-2.0); HEMATOCRIT. 37.5 % (42.0-52.0); HEMOGLOBIN. 12.5 g/dL (14.0-18.0); LYMPHOCYTES % 7.5 % (20.0-50.0); MEAN CORPUSCULAR HEMOGLOBIN 28.8 pg (28.0-32.0); MEAN CORPUSCULAR VOLUME 86.1 fL (80.0-94.0); MEAN PLATELET VOLUME 7.6 fl (7.4-10.4); MONOCYTES % 5.3 % (2.0-8.0); NEUTROPHILS % 85.8 % (40.0-76.0); PLATELET 349 x1000/uL (130-400); RED BLOOD CELL COUNT 4.36 mill/uL (4.7-6.1); RED CELL DISTRIBUTION WIDTH 13.5 % (11.6-14.6)
[2019-03-05 05:52] LABS: CHLORIDE 103 mEq/L (98-107)
[2019-03-05] MEDS: INSULIN LISPRO 100 UNITS/ML SUBCUT SCH ×3 (06:00→18:00)
[2019-03-05] MEDS: BLOOD SUGAR DIAGNOSTIC STRIP TEST SCH ×3 (06:33→18:00)
[2019-03-05] MEDS: LACTATED RINGERS 1,000 ML IV SCH ×2 (07:11→17:42)
[2019-03-05] MEDS: FENTANYL CITRATE/PF 500 MCG in SODIUM CHLORIDE 0.9% 40 ML IV PRN ×2 (08:45→20:43)
[2019-03-05] MEDS ORDERED: IPRATROPIUM/ALBUTEROL 0.5-3(2.5)MG/3ML NEB HHN PRN (09:15)
[2019-03-05 10:14] LABS: BG BASE EXCESS 0.2 mmol/L (-2.0-2.0); BG CARBOXYHEMOGLOBIN 0.3 % (0.5-1.5); BG DEOXYHEMOGLOBIN 3.4 % (0.0-5.0); BG FRACTION INSPIRED OXYGEN 40; BG HCO3 ACT 25.3 mmol/L (22.0-26.0); BG METHEMOGLOBIN 0.4 % (0.0-1.5); BG OXYGEN SATURATION 96.6 % (92.0-98.5); BG OXYHEMOGLOBIN 95.9 % (94.0-97.0); BG PCO2 42.4 mmHg (35.0-45.0); BG PH 7.393 (7.350-7.450); BG PO2 90.8 mmHg (75.0-100.0); BG PRESSURE SUPPORT 12; BG SAMPLE SITE RIGHT BRACHIAL; BG TIDAL VOLUME(mL) 500 mL; BG TOTAL HEMOGLOBIN 12.4 g/dL (12.0-18.0); BG VENT MODE VENT - SIMV; BG VENT RATE 8 set
[2019-03-05] MEDS ORDERED: MIDAZOLAM HCL 100 MG in DEXT 5% WATER 80 ML IV PRN (11:00)
[2019-03-05] MEDS: PANTOPRAZOLE SODIUM 40 MG/VIAL IV SCH (12:19)
[2019-03-05] MEDS: CEFEPIME 1,000 MG in DEXTROSE 5% WATER 50 ML IV SCH (12:28)
[2019-03-05] MEDS: IPRATROPIUM/ALBUTEROL 0.5-3(2.5)MG/3ML NEB HHN SCH ×2 (13:54→19:47)
[2019-03-05] MEDS: BUDESONIDE 0.5MG/2ML NEB HHN SCH (19:47)
[2019-03-05] MEDS: QUETIAPINE FUMARATE 25MG TABLET PO SCH (20:50)
[2019-03-06] VITALS (53 sets, daily range): BP systolic 86–199; BP diastolic 44–137
[2019-03-06] MEDS: CEFEPIME 1,000 MG in DEXTROSE 5% WATER 50 ML IV SCH ×2 (00:38→11:17)
[2019-03-06] MEDS: IPRATROPIUM/ALBUTEROL 0.5-3(2.5)MG/3ML NEB HHN SCH ×4 (01:45→20:34)
[2019-03-06] MEDS: LACTATED RINGERS 1,000 ML IV SCH ×3 (04:37→19:08)
[2019-03-06] MEDS: BLOOD SUGAR DIAGNOSTIC STRIP TEST SCH ×4 (06:00→18:59)
[2019-03-06] MEDS: INSULIN LISPRO 100 UNITS/ML SUBCUT SCH ×4 (06:00→18:00)
[2019-03-06 07:49] LABS: BG CARBOXYHEMOGLOBIN 0.2 % (0.5-1.5); BG DEOXYHEMOGLOBIN 3.5 % (0.0-5.0); BG FRACTION INSPIRED OXYGEN 40; BG HCO3 ACT 29.7 mmol/L (22.0-26.0); BG METHEMOGLOBIN 0.2 % (0.0-1.5); BG OXYGEN SATURATION 96.5 % (92.0-98.5); BG OXYHEMOGLOBIN 96.1 % (94.0-97.0); BG PCO2 44.4 mmHg (35.0-45.0); BG PH 7.443 (7.350-7.450); BG PO2 87.5 mmHg (75.0-100.0); BG PRESSURE SUPPORT 12; BG SAMPLE SITE RIGHT BRACHIAL; BG TIDAL VOLUME(mL) 500 mL; BG TOTAL HEMOGLOBIN 11.1 g/dL (12.0-18.0); BG VENT MODE VENT - SIMV; BG VENT RATE 8 set
[2019-03-06] MEDS: BUDESONIDE 0.5MG/2ML NEB HHN SCH ×2 (08:11→20:34)
[2019-03-06] MEDS: QUETIAPINE FUMARATE 25MG TABLET PO SCH ×2 (08:26→20:05)
[2019-03-06] MEDS: PANTOPRAZOLE SODIUM 40 MG/VIAL IV SCH (08:26)
[2019-03-06 12:12] LABS: BG BASE EXCESS 7.1 mmol/L (-2.0-2.0); BG CARBOXYHEMOGLOBIN 0.3 % (0.5-1.5); BG DEOXYHEMOGLOBIN 4.9 % (0.0-5.0); BG FRACTION INSPIRED OXYGEN 40; BG HCO3 ACT 31.1 mmol/L (22.0-26.0); BG METHEMOGLOBIN 0.2 % (0.0-1.5); BG OXYGEN SATURATION 95.1 % (92.0-98.5); BG OXYHEMOGLOBIN 94.6 % (94.0-97.0); BG PCO2 41.8 mmHg (35.0-45.0); BG PRESSURE SUPPORT 8; BG SAMPLE SITE RIGHT BRACHIAL; BG TOTAL HEMOGLOBIN 11.7 g/dL (12.0-18.0); BG VENT MODE VENT - CPAP
[2019-03-06] MEDS: LORAZEPAM 2MG/ML CPJ IV PRN (12:27)
[2019-03-06 15:59] LABS: T4 FREE 0.61 ng/dL (0.76-1.46)
[2019-03-07] VITALS (50 sets, daily range): BP systolic 109–171; BP diastolic 53–139
[2019-03-07] MEDS: CEFEPIME 1,000 MG in DEXTROSE 5% WATER 50 ML IV SCH ×3 (00:26→23:08)
[2019-03-07] MEDS: IPRATROPIUM/ALBUTEROL 0.5-3(2.5)MG/3ML NEB HHN SCH ×3 (02:02→12:29)
[2019-03-07] MEDS: LACTATED RINGERS 1,000 ML IV SCH ×4 (03:06→23:25)
[2019-03-07] MEDS: INSULIN LISPRO 100 UNITS/ML SUBCUT SCH ×5 (06:00→23:38)
[2019-03-07] MEDS: BLOOD SUGAR DIAGNOSTIC STRIP TEST SCH ×5 (06:00→23:38)
[2019-03-07] MEDS: BUDESONIDE 0.5MG/2ML NEB HHN SCH (08:44)
[2019-03-07] MEDS: QUETIAPINE FUMARATE 25MG TABLET PO SCH ×2 (09:00→20:43)
[2019-03-07] MEDS: PANTOPRAZOLE SODIUM 40 MG/VIAL IV SCH (09:39)
[2019-03-07] MEDS: LORAZEPAM 2MG/ML CPJ IV PRN (09:39)
[2019-03-07] MEDS: LEVOTHYROXINE SODIUM 100 MCG/ VIAL IV SCH (17:52)
[2019-03-08] VITALS (16 sets, daily range): BP systolic 116–179; BP diastolic 58–108
[2019-03-08] MEDS: LORAZEPAM 2MG/ML CPJ IV PRN ×3 (01:54→16:21)
[2019-03-08] MEDS: IPRATROPIUM/ALBUTEROL 0.5-3(2.5)MG/3ML NEB HHN SCH ×4 (03:16→19:56)
[2019-03-08] MEDS: INSULIN LISPRO 100 UNITS/ML SUBCUT SCH ×3 (07:00→17:07)
[2019-03-08] MEDS: BLOOD SUGAR DIAGNOSTIC STRIP TEST SCH ×3 (07:00→17:07)
[2019-03-08] MEDS: PANTOPRAZOLE SODIUM 40 MG/VIAL IV SCH (08:57)
[2019-03-08] MEDS: QUETIAPINE FUMARATE 25MG TABLET PO SCH ×2 (08:58→21:58)
[2019-03-08] MEDS: LEVOTHYROXINE SODIUM 100 MCG/ VIAL IV SCH (08:58)
[2019-03-08] MEDS: BUDESONIDE 0.5MG/2ML NEB HHN SCH (09:14)
[2019-03-08] MEDS: CEFEPIME 1,000 MG in DEXTROSE 5% WATER 50 ML IV SCH (12:38)
[2019-03-08] MEDS: LACTATED RINGERS 1,000 ML IV SCH (14:43)
[2019-03-09] VITALS (11 sets, daily range): BP systolic 109–168; BP diastolic 54–113
[2019-03-09] MEDS: IPRATROPIUM/ALBUTEROL 0.5-3(2.5)MG/3ML NEB HHN SCH ×4 (01:49→19:47)
[2019-03-09] MEDS: CEFEPIME 1,000 MG in DEXTROSE 5% WATER 50 ML IV SCH ×2 (02:05→15:46)
[2019-03-09] MEDS: LORAZEPAM 2MG/ML CPJ IV PRN ×2 (02:06→11:26)
[2019-03-09] MEDS: LACTATED RINGERS 1,000 ML IV SCH ×3 (02:06→20:53)
[2019-03-09] MEDS: INSULIN LISPRO 100 UNITS/ML SUBCUT SCH ×4 (06:00→17:56)
[2019-03-09] MEDS: BLOOD SUGAR DIAGNOSTIC STRIP TEST SCH ×4 (06:00→17:56)
[2019-03-09] MEDS: LEVOTHYROXINE SODIUM 100 MCG/ VIAL IV SCH (08:49)
[2019-03-09] MEDS: PANTOPRAZOLE SODIUM 40 MG/VIAL IV SCH (08:49)
[2019-03-09] MEDS: QUETIAPINE FUMARATE 25MG TABLET PO SCH ×2 (08:50→20:29)
[2019-03-09] MEDS: HYDRALAZINE 20MG/ML VIAL IV PRN (23:08)
[2019-03-10] VITALS (12 sets, daily range): BP systolic 135–176; BP diastolic 67–94
[2019-03-10] MEDS: BLOOD SUGAR DIAGNOSTIC STRIP TEST SCH ×4 (00:13→17:39)
[2019-03-10] MEDS: CEFEPIME 1,000 MG in DEXTROSE 5% WATER 50 ML IV SCH ×2 (00:13→12:44)
[2019-03-10] MEDS: IPRATROPIUM/ALBUTEROL 0.5-3(2.5)MG/3ML NEB HHN SCH ×4 (01:17→20:39)
[2019-03-10] MEDS: LORAZEPAM 2MG/ML CPJ IV PRN ×3 (01:24→16:29)
[2019-03-10] MEDS: INSULIN LISPRO 100 UNITS/ML SUBCUT SCH ×4 (06:00→18:00)
[2019-03-10] MEDS: LACTATED RINGERS 1,000 ML IV SCH (06:42)
[2019-03-10] MEDS: QUETIAPINE FUMARATE 25MG TABLET PO SCH ×2 (08:25→21:00)
[2019-03-10] MEDS: MORPHINE SULFATE 2 MG/ML CPJ (NOT FOR IM USE) IV PRN ×2 (09:14→14:27)
[2019-03-10] MEDS: FAMOTIDINE 20MG/2ML VIAL IV SCH ×2 (09:15→21:09)
[2019-03-10] MEDS: LEVOTHYROXINE SODIUM 100 MCG/ VIAL IV SCH (09:15)
[2019-03-10] MEDS: HALOPERIDOL LACTATE 5MG/ML VIAL IM PRN (19:48)
[2019-03-10 23:57] LABS: HEMATOCRIT 34.9 % (42.0-52.0); MEAN CORPUSCULAR HEMOGLOBIN 28.9 pg (28.0-32.0); MEAN CORPUSCULAR VOLUME 84.2 fL (80.0-94.0); PLATELET 542 x1000/uL (130-400); RED BLOOD CELL COUNT 4.15 mill/uL (4.7-6.1); RED CELL DISTRIBUTION WIDTH 13.3 % (11.6-14.6)
[2019-03-11] VITALS (12 sets, daily range): BP systolic 125–174; BP diastolic 65–93
[2019-03-11] MEDS: LORAZEPAM 2MG/ML CPJ IV PRN ×3 (00:51→17:50)
[2019-03-11] MEDS: CEFEPIME 1,000 MG in DEXTROSE 5% WATER 50 ML IV SCH ×3 (00:51→23:26)
[2019-03-11] MEDS: BLOOD SUGAR DIAGNOSTIC STRIP TEST SCH ×5 (00:57→23:21)
[2019-03-11] MEDS: IPRATROPIUM/ALBUTEROL 0.5-3(2.5)MG/3ML NEB HHN SCH ×3 (02:22→21:19)
[2019-03-11] MEDS: LACTATED RINGERS 1,000 ML IV SCH ×2 (02:48→21:22)
[2019-03-11] MEDS: INSULIN LISPRO 100 UNITS/ML SUBCUT SCH ×5 (06:00→23:32)
[2019-03-11 06:51] LABS: INR 1.2; PARTIAL THROMBOPLASTIN TIME 32.7 sec (23.4-31.0); PROTHROMBIN TIME 12.3 sec (9.6-11.0)
[2019-03-11 07:20] LABS: CHLORIDE 98 mEq/L (98-107)
[2019-03-11] MEDS: FAMOTIDINE 20MG/2ML VIAL IV SCH ×2 (09:25→20:24)
[2019-03-11] MEDS: LEVOTHYROXINE SODIUM 100 MCG/ VIAL IV SCH (09:28)
[2019-03-11] MEDS: HALOPERIDOL LACTATE 5MG/ML VIAL IM PRN ×2 (09:34→21:58)
[2019-03-11] MEDS ORDERED: POTASSIUM CHLORIDE INJ 40 MEQ in DEXT 5% WATER 500 ML IV NR (10:00)
[2019-03-11] MEDS ORDERED: LIDOCAINE HCL 1% 20ML VIAL (Pyxis) INJ ONE (10:43)
[2019-03-11] MEDS ORDERED: SODIUM BICARBONATE 4% (2.4MEQ) 5ML VIAL IV ONE (10:43)
[2019-03-11] MEDS ORDERED: BACTERIOSTATIC SODIUM CHLORIDE 0.9% 30ML VIAL IJ ONE (11:23)
[2019-03-11] MEDS ORDERED: MIDAZOLAM HCL 5 MG/5 ML VIAL ONE (15:33)
[2019-03-11] MEDS ORDERED: FENTANYL CITRATE/PF 50MCG/ML 2ML VIAL ONE (15:33)
[2019-03-11] MEDS ORDERED: MIDAZOLAM HCL 5 MG/5 ML VIAL IV PRN (15:53)
[2019-03-11] MEDS ORDERED: FENTANYL CITRATE/PF 50MCG/ML 2ML VIAL IV PRN (15:54)
[2019-03-11] MEDS: QUETIAPINE FUMARATE 25MG TABLET PO SCH ×2 (17:50→20:24)
[2019-03-11] MEDS ORDERED: DILTIAZEM HCL 5MG/ML 5ML VIAL IV NR (22:30)
[2019-03-11] MEDS: DILTIAZEM HCL 30MG TABLET GT SCH (23:27)
[2019-03-11] MEDS: HYDRALAZINE 20MG/ML VIAL IV PRN (23:32)
[2019-03-12] VITALS (12 sets, daily range): BP systolic 104–175; BP diastolic 47–101
[2019-03-12] MEDS: IPRATROPIUM/ALBUTEROL 0.5-3(2.5)MG/3ML NEB HHN SCH ×4 (01:16→20:51)
[2019-03-12] MEDS: DILTIAZEM HCL 30MG TABLET GT SCH ×3 (05:23→17:16)
[2019-03-12] MEDS: LORAZEPAM 2MG/ML CPJ IV PRN (05:23)
[2019-03-12] MEDS: INSULIN LISPRO 100 UNITS/ML SUBCUT SCH ×3 (05:24→18:43)
[2019-03-12] MEDS: BLOOD SUGAR DIAGNOSTIC STRIP TEST SCH ×3 (05:24→18:43)
[2019-03-12] MEDS: LEVOTHYROXINE SODIUM 100 MCG/ VIAL IV SCH (09:11)
[2019-03-12] MEDS: FAMOTIDINE 20MG/2ML VIAL IV SCH (09:11)
[2019-03-12] MEDS: QUETIAPINE FUMARATE 25MG TABLET PO SCH (09:11)
[2019-03-12] MEDS: LACTATED RINGERS 1,000 ML IV SCH ×2 (09:13→18:41)
[2019-03-12] MEDS: CEFEPIME 1,000 MG in DEXTROSE 5% WATER 50 ML IV SCH (12:47)
[2019-03-12] MEDS ORDERED: ACETAMINOPHEN 650MG/20.3ML UDC GT PRN (16:15)
[2019-03-12] MEDS: VALPROATE SODIUM 250MG/5ML UDC GT SCH (17:14)
[2019-03-12] MEDS: HYDRALAZINE 20MG/ML VIAL IV PRN (17:15)
[2019-03-12 17:42] LABS: CHLORIDE 103 mEq/L (98-107)
[2019-03-12] MEDS ORDERED: POTASSIUM CHLORIDE 20MEQ/PACKET GT NR ×2 (18:06→21:00)
[2019-03-12] MEDS: QUETIAPINE FUMARATE 25MG TABLET GT SCH (21:35)
[2019-03-12] MEDS: MORPHINE SULFATE 10MG/5ML ORAL SOLN UDC GT PRN (21:36)
[2019-03-12] MEDS: FAMOTIDINE 20MG TABLET GT SCH (21:36)
[2019-03-13] VITALS (12 sets, daily range): BP systolic 93–178; BP diastolic 55–116
[2019-03-13] MEDS: BLOOD SUGAR DIAGNOSTIC STRIP TEST SCH ×5 (00:31→23:34)
[2019-03-13] MEDS: DILTIAZEM HCL 30MG TABLET GT SCH ×5 (00:33→23:38)
[2019-03-13] MEDS: LORAZEPAM 2MG/ML CPJ IV PRN ×2 (00:37→08:51)
[2019-03-13] MEDS: IPRATROPIUM/ALBUTEROL 0.5-3(2.5)MG/3ML NEB HHN SCH ×3 (01:30→20:17)
[2019-03-13] MEDS: VALPROATE SODIUM 250MG/5ML UDC GT SCH ×2 (05:11→15:36)
[2019-03-13] MEDS: MORPHINE SULFATE 10MG/5ML ORAL SOLN UDC GT PRN ×3 (05:12→14:55)
[2019-03-13] MEDS: INSULIN LISPRO 100 UNITS/ML SUBCUT SCH ×5 (05:29→23:36)
[2019-03-13 06:36] LABS: BASOPHILS % 0.6 % (0.0-2.0); EOSINOPHILS % 2.9 % (0.0-5.0); HEMATOCRIT. 34.9 % (42.0-52.0); HEMOGLOBIN. 11.8 g/dL (14.0-18.0); LYMPHOCYTES % 13.1 % (20.0-50.0); MEAN CORPUSCULAR HEMOGLOBIN 28.4 pg (28.0-32.0); MEAN CORPUSCULAR VOLUME 84.4 fL (80.0-94.0); MEAN PLATELET VOLUME 6.7 fl (7.4-10.4); MONOCYTES % 6.2 % (2.0-8.0); NEUTROPHILS % 77.2 % (40.0-76.0); PLATELET 590 x1000/uL (130-400); RED BLOOD CELL COUNT 4.14 mill/uL (4.7-6.1); RED CELL DISTRIBUTION WIDTH 13.7 % (11.6-14.6)
[2019-03-13 07:23] LABS: CHLORIDE 105 mEq/L (98-107)
[2019-03-13 07:29] LABS: PHOSPHORUS 1.5 mg/dL (2.5-4.9)
[2019-03-13] MEDS ORDERED: LEVOTHYROXINE SODIUM 100MCG TABLET GT SCH (07:30)
[2019-03-13] MEDS ORDERED: POTASSIUM CHLORIDE 20MEQ/PACKET GT NR (08:45)
[2019-03-13] MEDS: FAMOTIDINE 20MG TABLET GT SCH ×2 (08:51→20:48)
[2019-03-13] MEDS: QUETIAPINE FUMARATE 25MG TABLET GT SCH ×2 (08:51→20:48)
[2019-03-13] MEDS: LACTATED RINGERS 1,000 ML IV SCH (09:56)
[2019-03-13] MEDS ORDERED: POTASSIUM PHOS,M-BASIC-D-BASIC 30 MMOL in DEXT 5% WATER 500 ML IV NR (18:00)
[2019-03-13] MEDS: METOPROLOL TARTRATE 50MG TABLET PO SCH (20:48)
[2019-03-14] VITALS (14 sets, daily range): BP systolic 109–182; BP diastolic 63–96
[2019-03-14] MEDS: IPRATROPIUM/ALBUTEROL 0.5-3(2.5)MG/3ML NEB HHN SCH ×4 (01:00→20:36)
[2019-03-14] MEDS: VALPROATE SODIUM 250MG/5ML UDC GT SCH ×2 (05:03→17:06)
[2019-03-14] MEDS: DILTIAZEM HCL 30MG TABLET GT SCH ×3 (05:04→17:07)
[2019-03-14] MEDS: BLOOD SUGAR DIAGNOSTIC STRIP TEST SCH ×3 (05:07→17:07)
[2019-03-14] MEDS: INSULIN LISPRO 100 UNITS/ML SUBCUT SCH ×3 (05:07→17:16)
[2019-03-14] MEDS ORDERED: LEVOTHYROXINE SODIUM 125MCG TABLET GT SCH (07:30)
[2019-03-14] MEDS: QUETIAPINE FUMARATE 25MG TABLET GT SCH ×2 (09:11→22:01)
[2019-03-14] MEDS: FAMOTIDINE 20MG TABLET GT SCH ×2 (09:11→22:00)
[2019-03-14] MEDS: METOPROLOL TARTRATE 50MG TABLET PO SCH ×2 (09:11→22:01)
[2019-03-14 10:12] LABS: CHLORIDE 97 mEq/L (98-107)
[2019-03-14 10:22] LABS: PHOSPHORUS 3.1 mg/dL (2.5-4.9)
[2019-03-14 10:40] LABS: VITAMIN B12 SERUM > 2000.0 pg/mL (211-911)
[2019-03-14] MEDS: LORAZEPAM 2MG/ML CPJ IV PRN ×2 (11:37→16:52)
[2019-03-14] MEDS: LACTATED RINGERS 1,000 ML IV SCH (12:55)
== END 2019-03-15 05:38 | DRG 870 ==
LOC: MICUSO 20:00 → 5EST 03-08 02:30 → UNDODISIN 03-13 20:15
PROVIDERS: ADMIT Internal Medicine; ATTEND Internal Medicine
PROC: 5A1955Z Respiratory Ventilation, Greater than 96 Consecutive Hours (ICD-10-PCS; principal; 2019-03-06)
PROC: 05HY33Z Insertion of Infusion Device into Upper Vein, Percutaneous Approach (ICD-10-PCS; 2019-03-11)
PROC: B54MZZA Ultrasonography of Right Upper Extremity Veins, Guidance (ICD-10-PCS; 2019-03-11)
PROC: 0DH63UZ Insertion of Feeding Device into Stomach, Percutaneous Approach (ICD-10-PCS; 2019-03-14)
DX: A41.52 Sepsis due to Pseudomonas (principal); J96.00 Acute respiratory failure, unspecified whether with hypoxia or hypercapnia; J15.1 Pneumonia due to Pseudomonas; J44.1 Chronic obstructive pulmonary disease with (acute) exacerbation; E44.0 Moderate protein-calorie malnutrition; I10 Essential (primary) hypertension; E11.9 Type 2 diabetes mellitus without complications; E78.1 Pure hyperglyceridemia; E03.9 Hypothyroidism, unspecified; C32.9 Malignant neoplasm of larynx, unspecified; E87.6 Hypokalemia; F41.1 Generalized anxiety disorder; I48.0 Paroxysmal atrial fibrillation; K25.9 Gastric ulcer, unspecified as acute or chronic, without hemorrhage or perforation; K29.70 Gastritis, unspecified, without bleeding; R13.12 Dysphagia, oropharyngeal phase; R47.02 Dysphasia; Z66 Do not resuscitate; J39.8 Other specified diseases of upper respiratory tract; Z68.26 Body mass index [BMI] 26.0-26.9, adult; Z88.0 Allergy status to penicillin; Z79.899 Other long term (current) drug therapy; Z93.0 Tracheostomy status; Z92.3 Personal history of irradiation; Z92.21 Personal history of antineoplastic chemotherapy; Z87.891 Personal history of nicotine dependence; Z87.11 Personal history of peptic ulcer disease; Z85.21 Personal history of malignant neoplasm of larynx; Z78.1 Physical restraint status
CPT/HCPCS: 36415; 36600; 70551; 71045; 76937; 80048; 80053; 82375; 82607; 82805; 82962; 83735; 84100; 84439; 84443; 84478; 84481; 85025; 85027; 93970; 94003; 94640; 97162; 97166; 97530; C1725; C1893; C9113; J0360; J0692; J1630; J1815; J2060; J2250; J2270; J2704; J3010; J3480; J3490; J7060; J7120; J7620; J7626